=== PATIENT | female | born 1945 ===

== ENCOUNTER 2023-06-07 13:00 | Outpatient (AMB) | payer OTHER, SELFPAY ==
[2023-06-07 13:06] VITALS: BP 126/68; PULSE 52; O2SAT 98; BMI 32.2
--- NOTE | 2023-06-07 13:06 | A.OFFVIS_ITS ---
Intake Vital Signs 06/07/23 13:06 Height 5 ft 3 in Weight 182 lb BMI 32.2 BP 126/68 Blood Pressure Location Lt brachial Position Sitting Pulse 52 Pulse Source Pulse Oximeter Pulse Oximetry (%) 98 Oxygen Delivery Method Room Air Intake Visit Reasons: COPD Allergies Contrast Allergy (Uncoded 06/07/23 13:34) Unknown HPI HPI Comments History of Present Illness Details The patient is here for pulmonary evaluation. The patient is a 77 year woman with known history of significant asthma. She grew up in [place] and also lived in [place] for many years. Now for the last few years has been in the area. She has been complaining of worsening shortness of breath and chest tightness. Moderate severity. Difficult to do all her activities of daily living. She states that when she was in [place] she was started on some i njections and she does not know the name. I believe there are biologics. She reports doing them every month. She did feel significant improvement with the injections. Meantime she has been doing Trelegy 100. Which is partially helpful. Although states she still has shortness of breath. The patient did have allergy testing in the past when she was in [place]. She has not had any testing since then. As far as imaging studies she states that last month she was having some back pain and radiation down to the arm and she ended up going to [facility] ED and she was evaluated then and had an x-ray done. We do not have those results. The patient states that she was told that most likely having cervical spinal cord injury and they recommended having additional imaging studies as an outpatient. 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 She is not sure that had anything to the with worsening respiratory symptoms. The patient also describes substernal chest discomfort. Moderate in severity when walking. She was evaluated by Cardiology and per her report the plate and frame filter operator mention to her that is likely pulmonary because her cardiac tests have been normal. She does carry a significant cardiac history also to note that her daughter and that up having a cardiac transplant but the details are not available. [facility] Medical History (Updated 06/09/23 @ 22:33 by Russell Nicole MD) Asthma Chest pain Dyspnea Social History (Updated 06/07/23 @ 13:11 by Kiya Duff [facility]) Alcohol intake: never Patient Tobacco Use Status: Never used Tobacco Review of Systems Const Denies fever(s) Eyes Denies change in vision ENT Reports nasal congestion Card Denies chest pain and Reports dyspnea on exertion Resp Reports cough, Reports dyspnea on exertion and Reports wheezing GI Reports no additional complaints Musc Reports no additional complaints Skin/Breast Denies rash Neuro Reports no additional complaints Endo Denies flushing Raúl/Lymph Denies lymphadenopathy Aller/Immun Reports wheezing Physical Exam Vital Signs: Last Vital Signs Pulse 52 06/07/23 13:06 BP 126/68 06/07/23 13:06 Pulse Ox 98 06/07/23 13:06 Oxygen Delivery Method Room Air 06/07/23 13:06 BMI result Body Mass Index 32.2 Const General: comfortable HEENT Head: Yes normocephalic Neck Neck: Yes trachea midline and Yes supple Chest Chest palpation & inspection: normal inspection of the chest Resp Effort & Inspection: normal respiratory effort Auscultation: wheezes and diminished lung sounds Cardio Heart sounds: S1 normal heart sound present and S2 normal heart sound present GI Palpation (GI): Soft to palpation Skin General skin exam: no rashes or lesions noted Extrem General: Yes no clubbing, cyanosis or edema Office Procedures 6 Minute Walk Time:: 13:30 SPO2 % at rest: 96 Pulse at rest: 46 SPO2 % during excercise: 96 Pulse during excercise: 78 SPO2 % after excercise: 97 Pulse after excercise: 59 Distance in yards walked: 150 Pillo Score: 6 Supplemental Oxygen: NONE Performance Observations:: PT. WALKED ON LEVEL SURFACE FOR 6 (SOX) MINUTES. pT SPO2 REMAINED IN UPPER 90'S AT ALL TIMES. PT STATES HER WORK OF BREATHING WAS SLIGHTLY LABORED. [address]5670 - 6 Minute Walk Assessment & Plan Assessment & Plan (1) Asthma: Code(s): J45.909 - Unspecified asthma, uncomplicated Qualifiers: Asthma severity: severe Asthma persistence: persistent Asthma complication type: uncomplicated Qualified Code(s): J45.50 - Severe persistent asthma, uncomplicated (2) Dyspnea: Code(s): R06.00 - Dyspnea, unspecified Qualifiers: Dyspnea type: dyspnea on exertion Qualified Code(s): R06.09 - Other forms of dyspnea (3) Chest pain: Code(s): R07.9 - Chest pain, unspecified Qualifiers: Chest pain type: unspecified Qualified Code(s): R07.9 - Chest pain, unspecified Plan PFTs Bloodwork / Allergy testing increase Trelegy 200 DANIELA as needed continue singulair consider Biologic therapy F/U 6-8 weeks Orders: Orders Angiotensin Converting Enzyme 06/07/23 J45.909 - Unspecified asthma, uncomplicated, R06.00 - Dyspnea, unspecified, R07.9 - Chest pain, unspecified Basic Metabolic Panel 06/07/23 J45.909 - Unspecified asthma, uncomplicated, R06.00 - Dyspnea, unspecified, R07.9 - Chest pain, unspecified Rast Allergen 06/07/23 J45.909 - Unspecified asthma, uncomplicated, R06.00 - Dyspnea, unspecified, R07.9 - Chest pain, unspecified Complete Blood Count Auto Diff 06/07/23 J45.909 - Unspecified asthma, uncomplicated, R06.00 - Dyspnea, unspecified, R07.9 - Chest pain, unspecified Erythrocyte Sedimentation Rate 06/07/23 J45.909 - Unspecified asthma, uncomplicated, R06.00 - Dyspnea, unspecified, R07.9 - Chest pain, unspecified Immunoglobulin E 06/07/23 J45.909 - Unspecified asthma, uncomplicated, R06.00 - Dyspnea, unspecified, R07.9 - Chest pain, unspecified PFT pulmonary function test 06/07/23 J45.909 - Unspecified asthma, uncomplicated, R06.00 - Dyspnea, unspecified, R07.9 - Chest pain, unspecified AMB 6 minute walk 06/07/23 R06.00 - Dyspnea, unspecified Medications: New dfqdtquritp-ubbvibaiu-cgexqofh 200-62.5-25 mcg (Trelegy Ellipta) 1 inh inhalation DAILY 30 days 60 ea 12RF Coding Level of Care Code New Pt Level 4 (06039) Diagnoses Asthma J45.50 Asthma severity: severe Asthma persistence: persistent Asthma complication type: uncomplicated Dyspnea R06.09 Dyspnea type: dyspnea on exertion Chest pain R07.9 Chest pain type: unspecified CPT Codes Coding ([id number]) Time Spent (min) 38
[2023-06-07 13:55] VITALS: PULSE 46; O2SAT 96
== END 2023-06-07 14:08 | disposition home or self-care (01) ==
PROVIDERS: PCP Internal Medicine; Visit Provider Hospitalist
DX: J45.50 Severe persistent asthma, uncomplicated (principal)
CPT/HCPCS: 94618; 99204

== ENCOUNTER 2023-06-07 13:00 | Outpatient (REF) | payer OTHER, SELFPAY ==
[2023-06-07 14:23] LABS: MANUAL DIFF FLAG NO
[2023-06-07 15:56] LABS: Basophils Percent Auto 1.1 % (0-2); Eosinophils Absolute Auto 0.3 X10*3/uL (0.0-0.4); Hematocrit 34.3 % (37.0-47.0); Hemoglobin 10.7 g/dl (12.0-16.0); Imm Gran Abs Auto 0.01 X10*3/uL (0.00-0.03); Imm Gran Pct Auto 0.3 % (0.0-0.4); Lymphocytes Absolute Auto 1.2 X10*3/uL (1.2-4.9); Lymphocytes Percent Auto 32.2 % (20-40); Mean Corpuscular HGB Conc 31.2 g/dl (31.0-35.0); Mean Corpuscular Volume 86.4 fL (80.0-98.0); Mean Platelet Volume 10.8 fL (9.4-12.3); Monocytes Absolute Auto 0.4 X10*3/uL (0.1-1.2); Neutrophils Absolute Auto 1.7 x10*3/uL (2.0-8.3); Neutrophils Percent Auto 45.4 % (45-73); Platelet Count 198 X10*3/uL (160-400); Red Blood Count 3.97 X10*6/uL (4.20-5.50); Red Cell Distribution Width 14.1 % (11.0-16.0); White Blood Count 3.7 X10*3/uL (4.8-10.8)
[2023-06-07 16:40] LABS: Anion Gap 11 (12-20); Blood Urea Nitrogen 22 mg/dL (9-16); Calcium 9.3 mg/dL (8.4-10.2); Carbon Dioxide 28 mmol/L (22-29); Chloride 107 mmol/L (96-108); Erythrocyte Sedimentation Rate 13 MM/HR (0-20); Estimated Glomerular Filt Rate 54; Glucose Random 85 mg/dL (60-115); Potassium 3.5 mmol/L (3.3-5.1); Sodium 142 mmol/L (135-145)
[2023-06-12 18:18] LABS: Immunoglobulin E 385 kU/L (<OR=114)
[2023-06-12 20:49] LABS: Angiotensin Converting Enzyme 9.9 U/L (9-67)
== END 2023-06-07 13:01 | disposition home or self-care (01) ==
LOC: HO.LAB 13:00
PROVIDERS: PCP Internal Medicine; Visit Provider Hospitalist
DX: J45.909 Unspecified asthma, uncomplicated (principal); R06.00 Dyspnea, unspecified; R07.9 Chest pain, unspecified; Z91.09 Other allergy status, other than to drugs and biological substances
CPT/HCPCS: 36415; 80048; 82164; 82785; 85025; 85652; 86003; 94618; 99202

== ENCOUNTER 2023-07-24 13:00 | Outpatient (REF) | payer OTHER, SELFPAY ==
--- NOTE | 2023-07-24 13:54 | PFT_ITS ---
Forced vital capacity 73%, FEV1 63%. FEV1/FVC ratio is 65. ING67-84 50% and MVV 45%. Post bronchodilator therapy, there is significant improvement in all flow volumes. Total lung capacity 75%. Residual volume is 26%. Diffusion capacity 56%. CONCLUSION: There is mild degree of restrictive pulmonary disorder. Moderately severe obstructive airway disorder with good response to bronchodilator therapy. These findings are consistent with asthma/COPD overlap syndrome and also with restrictive lung disorder. Clinical correlation recommended. MD SHARRI Green/MODL / [id number]
== END 2023-07-24 13:01 | disposition home or self-care (01) ==
LOC: HO.RESP 13:00
PROVIDERS: PCP Physician Assistant; Visit Provider Hospitalist
DX: J45.909 Unspecified asthma, uncomplicated (principal); R06.00 Dyspnea, unspecified; R07.9 Chest pain, unspecified
CPT/HCPCS: 94010; 94727; 94729

== ENCOUNTER → 2023-07-24 13:54 | Outpatient (BNV) | payer OTHER, SELFPAY | PROVIDERS: PCP Physician Assistant; Visit Provider Internal Medicine | DX: J45.909 Unspecified asthma, uncomplicated (principal) | CPT/HCPCS: 94060; 94727; 94729 ==

== ENCOUNTER 2023-08-13 13:42 | Outpatient (AMB) | payer OTHER, SELFPAY ==
[2023-08-13 14:06] VITALS: PULSE 59; O2SAT 94; BMI 32.1
--- NOTE | 2023-08-13 14:06 | MHC.OFFVIS ---
Intake Vital Signs 08/13/23 14:06 Height 5 ft 3 in Weight 181 lb 7.047 oz BMI 32.1 Pulse 59 Pulse Source Pulse Oximeter Pulse Oximetry (%) 94 Oxygen Delivery Method Room Air Intake Visit Reasons: COPD Institutional Aide Required: No Allergies Contrast Allergy (Uncoded 08/13/23 14:07) Unknown HPI HPI Comments History of Present Illness Details The patient is a 77 year woman with known history of significant asthma. She grew up in [place] and also lived in [place] for many years. Now for the last few years has been in the area. She has been complaining of worsening shortness of breath and chest tightness. Moderate severity. Difficult to do all her activities of daily living. She states that when she was in [place] she was started on some injections and she does not know the name. I believe there are biologics. She reports doing them every month. She did feel significant improvement with the injections. Meantime she has been doing Trelegy 100. Which is partially helpful. Although states she still has shortness of breath. The patient did have allergy testing in the past when she was in [place]. She has not had any testing since then. As far as imaging studies she states that last month she was having some back pain and radiation down to the arm and she ended up going to [facility] ED and she was evaluated then and had an x-ray done. We do not have those results. The patient states that she was told that most likely having cervical spinal cord injury and they recommended having additional imaging studies as an outpatient. 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 She is not sure that had anything to the with worsening respiratory symptoms. The patient also describes substernal chest discomfort. Moderate in severity when walking. She was evaluated by Cardiology and per her report the director industrial museum mention to her that is likely pulmonary because her cardiac tests have been normal. She does carry a significant cardiac history also to note that her daughter and that up having a cardiac transplant but the details are not available. 08/13/2023 the patient is here for a pulmonary follow-up visit. The patient still complains of chest tightness and cough. Moderate severity. The increasing the Trelegy inhaler did help some but only partially. She still requires her rescue inhaler on a daily basis. Also worsened now during the fall season. We did review her allergies. The patient does have significant allergies. She does have elevations in her IgE and also elevations in her eosinophil count. She had been on biologic therapies in the past. At this point I do believe she needs to go back on them specially with the ongoing rhinosinusitis and significant asthma symptoms. We did review her PFTs demonstrating reversible obstruction with significant small airways disease. [facility] Medical History (Updated 08/13/23 @ 21:37 by Russell Nicole MD) Chronic sinusitis Chest pain Dyspnea Asthma Social History (Updated 06/07/23 @ 13:11 by Kiya Duff CMA) Alcohol intake: never Patient Tobacco Use Status: Never used Tobacco Review of Systems Const Denies fever(s) and Reports headache(s) Eyes Denies change in vision ENT Reports headache(s) and Reports nasal congestion Card Denies chest pain and Reports dyspnea on exertion Resp Reports cough, Reports dyspnea on exertion and Reports wheezing GI Reports no additional complaints Musc Reports no additional complaints Skin/Breast Denies rash Neuro Reports no additional complaints and Reports headache(s) Endo Denies flushing Raúl/Lymph Denies lymphadenopathy Aller/Immun Reports wheezing Physical Exam Vital Signs: Last Vital Signs Pulse 59 08/13/23 14:06 Pulse Ox 94 08/13/23 14:06 Oxygen Delivery Method Room Air 08/13/23 14:06 BMI result Body Mass Index 32.1 Const General: comfortable HEENT Head: Yes normocephalic Neck Neck: Yes trachea midline and Yes supple Chest Chest palpation & inspection: normal inspection of the chest Resp Effort & Inspection: normal respiratory effort Auscultation: wheezes and diminished lung sounds Cardio Heart sounds: S1 normal heart sound present and S2 normal heart sound present GI Palpation (GI): Soft to palpation Skin General skin exam: no rashes or lesions noted Extrem General: Yes no clubbing, cyanosis or edema Assessment & Plan Assessment & Plan (1) Asthma: Code(s): J45.909 - Unspecified asthma, uncomplicated Qualifiers: Asthma complication type: uncomplicated Asthma persistence: persistent Asthma severity: severe Qualified Code(s): J45.50 - Severe persistent asthma, uncomplicated (2) Dyspnea: Code(s): R06.00 - Dyspnea, unspecified Qualifiers: Dyspnea type: dyspnea on exertion Qualified Code(s): R06.09 - Other forms of dyspnea (3) Chest pain: Code(s): R07.9 - Chest pain, unspecified Qualifiers: Chest pain type: unspecified Qualified Code(s): R07.9 - Chest pain, unspecified (4) Chronic sinusitis: Code(s): J32.9 - Chronic sinusitis, unspecified Qualifiers: Sinusitis location: pansinusitis Qualified Code(s): J32.4 - Chronic pansinusitis Plan start Dupixent 300mg continue Trelegy 200 DANIELA as needed continue singulair F/U 3-4months Coding Level of Care Code Est Pt Level 4 (95898) Diagnoses Severe persistent asthma without complication J45.50 Asthma complication type: uncomplicated Asthma persistence: persistent Asthma severity: severe Dyspnea on exertion R06.09 Dyspnea type: dyspnea on exertion Chest pain, unspecified type R07.9 Chest pain type: unspecified Chronic pansinusitis J32.4 Sinusitis location: pansinusitis Time Spent (min) 17
== END 2023-08-13 14:29 | disposition home or self-care (01) ==
PROVIDERS: PCP Physician Assistant; Visit Provider Hospitalist
DX: J45.50 Severe persistent asthma, uncomplicated (principal); R06.09 Other forms of dyspnea; R07.9 Chest pain, unspecified; J32.4 Chronic pansinusitis
CPT/HCPCS: 99214

== ENCOUNTER → 2023-08-13 13:42 | Outpatient (BNVA) | payer OTHER, SELFPAY | PROVIDERS: PCP Physician Assistant; Visit Provider Hospitalist | DX: J45.50 Severe persistent asthma, uncomplicated (principal); R06.09 Other forms of dyspnea; R07.9 Chest pain, unspecified; J32.4 Chronic pansinusitis | CPT/HCPCS: 99212 ==

== ENCOUNTER 2023-08-31 09:51 | Outpatient (AMB) | payer OTHER, SELFPAY ==
--- NOTE | 2023-08-31 09:57 | MHC.OFFVIS ---
Intake Vital Signs 08/31/23 09:58 BP 138/68 Blood Pressure Location Rt brachial Position Sitting Pulse 58 Pulse Source Pulse Oximeter Pulse Oximetry (%) 98 Oxygen Delivery Method Room Air Intake Visit Reasons: Dupixent Teaching Allergies Contrast Allergy (Uncoded 08/31/23 10:19) Unknown Medication List - Last Reconciled 08/31/23 by Bethany Campos LPN amlodipine 5 mg PO DAILY wxrffueaim-zlkycffib-chtppqjir 10-160-12.5 mg 1 tab PO DAILY aspirin 81 mg PO DAILY atorvastatin 40 mg PO DAILY carvedilol 3.125 mg PO Q12H dupilumab (Dupixent) subcutaneously every 2 weeks; loading dose 600mg, then 300mg every 2 weeks 4 weeks utuoroegtom-vsxzaslxo-askhaqfs 200-62.5-25 mcg (Trelegy Ellipta) 1 inh inhalation DAILY 30 days furosemide 40 mg PO BID gabapentin 300 mg PO BEDTIME isosorbide mononitrate ER 60 mg PO QAM montelukast 10 mg PO DAILY omeprazole 20 mg PO DAILY oxcarbazepine 150 mg PO BID valsartan-hydrochlorothiazide 320-12.5 mg 1 tab PO DAILY HPI Dupixent Teaching HPI Details Radha is here for a Dupixent teach with her BOILER TECHNICIAN Sepideh. Radha and Sepideh were educated on hand washing, injection preparation, administration, and disposal.? Radha and Sepideh were both able to return demonstrate proper technique for hand washing, injection preparation, administration and disposal of needle and states they have no questions at this time. Medication Dupixent 300mg/2mL pre-filled pen (patient?s own meds) Loading dose of 600mg given by the patient in 2 SQ injections; injection #1 R upper arm ;? injection #2 L upper arm? Lot# [id number] expires 06/18/2025. Patient aware her next injection is in 15 days. Nurse visit only.? [facility] Medical History (Updated 08/13/23 @ 21:37 by Russell Nicole MD) Chronic sinusitis Chest pain Dyspnea Asthma Social History (Updated 06/07/23 @ 13:11 by Kiya Duff CMA) Alcohol intake: never Patient Tobacco Use Status: Never used Tobacco Assessment & Plan Assessment & Plan (1) Asthma: Code(s): J45.909 - Unspecified asthma, uncomplicated Qualifiers: Asthma severity: severe Asthma persistence: persistent Asthma complication type: uncomplicated Qualified Code(s): J45.50 - Severe persistent asthma, uncomplicated Coding Level of Care Code Established Pt Est Pt Level 1 (85103) Patient Type Established Diagnoses Severe persistent asthma without complication J45.50 Asthma severity: severe Asthma persistence: persistent Asthma complication type: uncomplicated Comment NURSE VISIT ONLY
[2023-08-31 09:58] VITALS: BP 138/68; PULSE 58; O2SAT 98
== END 2023-08-31 10:28 | disposition home or self-care (01) ==
PROVIDERS: PCP Physician Assistant; Visit Provider Hospitalist
DX: J45.50 Severe persistent asthma, uncomplicated (principal)

== ENCOUNTER → 2023-08-31 09:51 | Outpatient (BNVA) | payer OTHER, SELFPAY | PROVIDERS: PCP Physician Assistant; Visit Provider Hospitalist | DX: Z71.89 Other specified counseling (principal); J45.50 Severe persistent asthma, uncomplicated | CPT/HCPCS: 99211 ==

== ENCOUNTER 2023-12-17 13:39 | Outpatient (AMB) | payer OTHER, SELFPAY ==
[2023-12-17 13:54] VITALS: PULSE 60; O2SAT 97; BMI 32.1
--- NOTE | 2023-12-17 13:54 | A.OFFVIS_ITS ---
Intake Vital Signs 12/17/23 13:54 Height 5 ft 3 in Weight 181 lb 7.047 oz BMI 32.1 Pulse 60 Pulse Source Pulse Oximeter Pulse Oximetry (%) 97 Oxygen Delivery Method Room Air Intake Visit Reasons: COPD Angle Dozer Operator Required: No Allergies Contrast Allergy (Uncoded 12/17/23 13:56) Unknown HPI HPI Comments History of Present Illness Details The patient is a 78 year woman with known history of significant asthma. She grew up in [place] and also lived in [place] for many years. Now for the last few years has been in the area. She has been complaining of worsening shortness of breath and chest tightness. Moderate severity. Difficult to do all her activities of daily living. She states that when she was in [place] she was started on some injections and she does not know the name. I believe there are biologics. She reports doing them every month. She did feel significant improvement with the injections. Meantime she has been doing Trelegy 100. Which is partially helpful. Although states she still has shortness of breath. The patient did have allergy testing in the past when she was in [place]. She has not had any testing since then. As far as imaging studies she states that last month she was having some back pain and radiation down to the arm and she ended up going to [facility] ED and she was evaluated then and had an x-ray done. We do not have those results. The patient states that she was told that most likely having cervical spinal cord injury and they recommended having additional imaging studies as an outpatient. 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 She is not sure that had anything to the with worsening respiratory symptoms. The patient also describes substernal chest discomfort. Moderate in severity when walking. She was evaluated by Cardiology and per her report the property and supply officer mention to her that is likely pulmonary because her cardiac tests have been normal. She does carry a significant cardiac history also to note that her daughter and that up having a cardiac transplant but the details are not available. 08/13/2023 the patient is here for a pulmonary follow-up visit. The patient still complains of chest tightness and cough. Moderate severity. The increasing the Trelegy inhaler did help some but only partially. She still requires her rescue inhaler on a daily basis. Also worsened now during the fall season. We did review her allergies. The patient does have significant allergies. She does have elevations in her IgE and also elevations in her eosinophil count. She had been on biologic therapies in the past. At this point I do believe she needs to go back on them specially with the ongoing rhinosinusitis and significant asthma symptoms. We did review her PFTs demonstrating reversible obstruction with significant small airways disease. 12/17/2023 the patient is here for a pulmonary follow-up visit. The patient is complaining of worsening chest tightness and wheezing. She has also been coughing more. Moderate severity. She is using the Trelegy with partial response. She feels like a nebulizer be helpful but hers is broken down in a longer working effectively. Will request a replacement nebulizer for her. In the meantime the patient does have wheezing on examination. Will go ahead treat her for an asthma exacerbation. She did start the Dupixent injections. However, she relies on her RABBIT FANCIER to give her the injections and she was due about a week ago and she is yet to use it because she does not have any help. She did bring it in today we did help her with the injection today. She will have every 2 weeks as prescribed she understands this will decrease the need for prednisone. In the meantime she will need additional prednisone this time. I will give her low-dose since it bothersome to take prednisone. [facility] Medical History (Updated 12/17/23 @ 20:24 by Russell Nicole MD) Chronic sinusitis Chest pain Dyspnea Asthma Social History (Updated 06/07/23 @ 13:11 by Kiya Duff CMA) Alcohol intake: never Patient Tobacco Use Status: Never used Tobacco Review of Systems Const Denies fever(s) and Reports headache(s) Eyes Denies change in vision ENT Reports headache(s) and Reports nasal congestion Card Denies chest pain and Reports dyspnea on exertion Resp Reports cough, Reports dyspnea on exertion and Reports wheezing GI Reports no additional complaints Musc Reports no additional complaints Skin/Breast Denies rash Neuro Reports no additional complaints and Reports headache(s) Endo Denies flushing Raúl/Lymph Denies lymphadenopathy Aller/Immun Reports wheezing Physical Exam Vital Signs: Last Vital Signs Pulse 60 12/17/23 13:54 Pulse Ox 97 12/17/23 13:54 Oxygen Delivery Method Room Air 12/17/23 13:54 BMI result Body Mass Index 32.1 Const General: comfortable HEENT Head: Yes normocephalic Neck Neck: Yes trachea midline and Yes supple Chest Chest palpation & inspection: normal inspection of the chest Resp Effort & Inspection: normal respiratory effort Auscultation: wheezes and diminished lung sounds Cardio Heart sounds: S1 normal heart sound present and S2 normal heart sound present GI Palpation (GI): Soft to palpation Skin General skin exam: no rashes or lesions noted Extrem General: Yes no clubbing, cyanosis or edema Assessment & Plan Assessment & Plan (1) Asthma: Code(s): J45.909 - Unspecified asthma, uncomplicated Qualifiers: Asthma complication type: with acute exacerbation Asthma persistence: persistent Asthma severity: severe Qualified Code(s): J45.51 - Severe persistent asthma with (acute) exacerbation (2) Dyspnea: Code(s): R06.00 - Dyspnea, unspecified Qualifiers: Dyspnea type: dyspnea on exertion Qualified Code(s): R06.09 - Other forms of dyspnea Plan continue Dupixent 300mg continue Trelegy 200 DANIELA as needed start Prednisone taper start Zpack DANIELA as neeeded continue singulair Needs nebulizer F/U 3-4months Medications: New azithromycin 500 mg PO DAILY 5 days 5 tabs 0RF prednisone PO daily; Take 3 tabs daily for 3 days, then 2 tabs daily x 3 days, then 1 tab daily x 3 days. 9 days 18 tabs 0RF albuterol sulfate 2.5 mg (3 mL) inhalation Q6H 30 days PRN 180 mL 11RF shortness of breath or wheezing Coding Level of Care Code Est Pt Level 4 (70071) Diagnoses Severe persistent asthma with acute exacerbation J45.51 Asthma complication type: with acute exacerbation Asthma persistence: persistent Asthma severity: severe Dyspnea on exertion R06.09 Dyspnea type: dyspnea on exertion Time Spent (min) 17
== END 2023-12-17 14:38 | disposition home or self-care (01) ==
PROVIDERS: PCP Physician Assistant; Visit Provider Hospitalist
DX: J45.51 Severe persistent asthma with (acute) exacerbation (principal); R06.09 Other forms of dyspnea
CPT/HCPCS: 99214

== ENCOUNTER → 2023-12-17 13:39 | Outpatient (BNVA) | payer OTHER, SELFPAY | PROVIDERS: PCP Physician Assistant; Visit Provider Hospitalist | DX: J45.51 Severe persistent asthma with (acute) exacerbation (principal); R06.09 Other forms of dyspnea | CPT/HCPCS: 99212 ==

== ENCOUNTER 2024-06-25 09:47 | Outpatient (REF) | payer OTHER, SELFPAY ==
--- NOTE | ~2024-06-25 | XR_ITS ---
EXAMINATION: XR CHEST 2 VIEWS CLINICAL INFORMATION: Central chest pain. COMPARISON: None. TECHNIQUE: Frontal and lateral views of the chest were obtained. FINDINGS: The heart, great vessels, pulmonary vasculature and mediastinum are normal. There is absence of calcification and tortuosity of the thoracic aorta. The lungs show no focal infiltrate, effusion or pneumothorax. There is no acute osseous abnormality. There is multi-level thoracic spondylosis. XR/XR chest 2V IMPRESSION: No active cardiopulmonary disease. Electronically signed by: Manny Garcia MD 07/23/2024 08:54 PM EDT
--- NOTE | 2024-06-25 10:23 | ECG_ITS ---
Test Reason : copd Blood Pressure : / mmHG Vent. Rate : 052 BPM Atrial Rate : 052 BPM P-R Int : 158 ms QRS Dur : 098 ms QT Int : 414 ms P-R-T Axes : 009 -18 016 degrees QTc Int : 385 ms Sinus bradycardia Nonspecific ST and T wave abnormality Abnormal ECG No previous ECGs available Referred By: Russell Nicole Electronically Signed By:SCOTT COLLINS MD
[2024-06-25 10:29] LABS: MANUAL DIFF FLAG NO
[2024-06-25 11:45] LABS: Basophils Percent Auto 0.6 % (0-2); Eosinophils Absolute Auto 0.1 X10*3/uL (0.0-0.4); Eosinophils Percent Auto 4.5 % (0-4); Hematocrit 35.5 % (37.0-47.0); Hemoglobin 11.4 g/dl (12.0-16.0); Imm Gran Abs Auto 0.02 X10*3/uL (0.00-0.03); Imm Gran Pct Auto 0.6 % (0.0-0.4); Lymphocytes Absolute Auto 0.9 X10*3/uL (1.2-4.9); Lymphocytes Percent Auto 28.1 % (20-40); Mean Corpuscular HGB Conc 32.1 g/dl (31.0-35.0); Mean Corpuscular Hemoglobin 27.5 pg (27.0-33.0); Mean Corpuscular Volume 85.5 fL (80.0-98.0); Mean Platelet Volume 10.5 fL (9.4-12.3); Monocytes Absolute Auto 0.6 X10*3/uL (0.1-1.2); Monocytes Percent Auto 18.8 % (2-11); Neutrophils Absolute Auto 1.5 x10*3/uL (2.0-8.3); Neutrophils Percent Auto 47.4 % (45-73); Platelet Count 180 X10*3/uL (160-400); Red Blood Count 4.15 X10*6/uL (4.20-5.50); White Blood Count 3.1 X10*3/uL (4.8-10.8)
[2024-06-25 12:02] LABS: B Type Natriuretic Peptide 29 pg/mL (<100)
[2024-06-25 12:20] LABS: Anion Gap 11 (12-20); Blood Urea Nitrogen 9 mg/dL (9-16); Calcium 9.7 mg/dL (8.4-10.2); Carbon Dioxide 28 mmol/L (22-29); Chloride 105 mmol/L (96-108); Estimated Glomerular Filt Rate 59; Glucose Random 106 mg/dL (60-115); Potassium 3.1 mmol/L (3.3-5.1); Sodium 141 mmol/L (135-145)
[2024-06-25 12:28] LABS: Erythrocyte Sedimentation Rate 17 MM/HR (0-20)
[2024-06-26 14:13] LABS: Immunoglobulin E 85 kU/L (<OR=114)
== END 2024-06-25 09:48 | disposition home or self-care (01) ==
LOC: HO.LAB 09:47
PROVIDERS: PCP Physician Assistant; Visit Provider Hospitalist
DX: R07.9 Chest pain, unspecified (principal); R06.09 Other forms of dyspnea; J44.9 Chronic obstructive pulmonary disease, unspecified; J45.51 Severe persistent asthma with (acute) exacerbation
CPT/HCPCS: 36415; 71046; 80048; 82785; 83880; 84484; 85025; 85652; 93005; 99212

== ENCOUNTER 2024-06-25 09:47 | Outpatient (AMB) | payer OTHER, SELFPAY ==
[2024-06-25 09:51] VITALS: PULSE 62; O2SAT 99; BMI 31.4
--- NOTE | 2024-06-25 09:51 | A.OFFVIS_ITS ---
Vital Signs 06/25/24 09:51 Height 5 ft 3 in Weight 177 lb 7.554 oz BMI 31.4 Pulse 62 Pulse Source Pulse Oximeter Pulse Oximetry (%) 99 Oxygen Delivery Method Room Air Intake Visit Reasons: COPD Plumbing Engineer Required: No Allergies Contrast Allergy (Uncoded 06/25/24 09:53) Unknown HPI Comments Details: The patient is a 78 year woman with known history of significant asthma. She g rew up in [place] and also lived in [place] for many years. Now for the last few years has been in the area. She has been complaining of worsening shortness of breath and chest tightness. Moderate severity. Difficult to do all her activities of daily living. She states that when she was in [place] she was started on some injections and she does not know the name. I believe there are biologics. She reports doing them every month. She did feel significant improvement with the injections. Meantime she has been doing Trelegy 100. Which is partially helpful. Although states she still has shortness of breath. The patient did have allergy testing in the past when she was in [place]. She has not had any testing since then. As far as imaging studies she states that last month she was having some back pain and radiation down to the arm and she ended up going to [facility] ED and she was evaluated then and had an x-ray done. We do not have those results. The patient states that she was told that most likely having cervical spinal cord injury and they recommended having additional imaging studies as an outpatient. 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 She is not sure that had anything to the with worsening respiratory symptoms. The patient also describes substernal chest discomfort. Moderate in severity when walking. She was evaluated by Cardiology and per her report the office technician mention to her that is likely pulmonary because her cardiac tests have been normal. She does carry a significant cardiac history also to note that her daughter and that up having a cardiac transplant but the details are not available. 08/13/2023 the patient is here for a pulmonary follow-up visit. The patient still complains of chest tightness and cough. Moderate severity. The increasing the Trelegy inhaler did help some but only partially. She still requires her rescue inhaler on a daily basis. Also worsened now during the fall season. We did review her allergies. The patient does have significant allergies. She does have elevations in her IgE and also elevations in her eosinophil count. She had been on biologic therapies in the past. At this po int I do believe she needs to go back on them specially with the ongoing rhinosinusitis and significant asthma symptoms. We did review her PFTs demonstrating reversible obstruction with significant small airways disease. 12/17/2023 the patient is here for a pulmonary follow-up visit. The patient is complaining of worsening chest tightness and wheezing. She has also been coughing more. Moderate severity. She is using the Trelegy with partial response. She feels like a nebulizer be helpful but hers is broken down in a longer working effectively. Will request a replacement nebulizer for her. In the meantime the patient does have wheezing on examination. Will go ahead treat her for an asthma exacerbation. She did start the Dupixent injections. However, she relies on her SPECIAL PROJECTS MANAGER to give her the injections and she was due about a week ago and she is yet to use it because she does not have any help. She did bring it in today we did help her with the injection today. She will have every 2 weeks as prescribed she understands this will decrease the need for prednisone. In the meantime she will need additional prednisone this time. I will give her low-dose since it bothersome to take prednisone. 06/25/2024 the patient is here for a pulmonary follow-up visit. She complains of worsening dyspnea on exertion chest chest pressure. She is concerned about the heart. The patient did have a cardiac catheterization apparently back in 2021 at [facility]. We did review. She had some mild CAD not enough for PCI. She has also been noticing some lower extremity edema. She has been on the Dupixent injections. She is not sure of the working. She does feel that she is having a rash at the area of the site with her being injected. Based on her allergic and adverse reaction will go ahead and switch over to Tezspire. I did give her information about iit and her nurse did send the paperwork in order to submitted to the insurance company. She does have some wheezing on examination. Some chest tightness. She is going to continue with the respiratory medications that have been partially helpful. I do believe that part her symptoms are due to her persistent bronchospasms and uncontrolled asthma. Although will have her get a chest x-ray in addition to blood work. The patient should also get an EKG at some point. [facility] Medical History (Updated 06/25/24 @ 22:53 by Russell Nicole MD) Chronic sinusitis Chest pain Dyspnea Asthma Social History (Updated 06/07/23 @ 13:11 by Kiya Duff CMA) Alcohol intake: never Patient Tobacco Use Status: Never used Tobacco Review of Systems Const Denies fever(s) and Reports headache(s) Eyes Denies change in vision ENT Reports headache(s) and Reports nasal congestion Card Denies chest pain and Reports dyspnea on exertion Resp Reports cough, Reports dyspnea on exertion and Reports wheezing GI Reports no additional complaints Musc Reports no additional complaints Skin/Breast Denies rash Neuro Reports no additional complaints and Reports headache(s) Endo Denies flushing Raúl/Lymph Denies lymphadenopathy Aller/Immun Reports wheezing Physical Exam Vital Signs: Last Vital Signs Pulse 62 06/25/24 09:51 Pulse Ox 99 06/25/24 09:51 Oxygen Delivery Method Room Air 06/25/24 09:51 BMI result Body Mass Index 31.4 Const General: comfortable HEENT Head: Yes normocephalic Neck Neck: Yes trachea midline and Yes supple Chest Chest palpation & inspection: normal inspection of the chest Resp Effort & Inspection: normal respiratory effort Auscultation: wheezes and diminished lung sounds Cardio Heart sounds: S1 normal heart sound present and S2 normal heart sound present GI Palpation (GI): Soft to palpation Skin General skin exam: no rashes or lesions noted Extrem General: Yes no clubbing, cyanosis or edema Assessment & Plan Assessment & Plan (1) Asthma: Code(s): J45.909 - Unspecified asthma, uncomplicated Category: Medical Qualifiers: Asthma complication type: uncomplicated Asthma persistence: persistent Asthma severity: severe Qualified Code(s): J45.50 - Severe persistent asthma, uncomplicated (2) Dyspnea: Code(s): R06.00 - Dyspnea, unspecified Category: Medical Qualifiers: Dyspnea type: dyspnea on exertion Qualified Code(s): R06.09 - Other forms of dyspnea (3) Chest pain: Code(s): R07.9 - Chest pain, unspecified Category: Medical Qualifiers: Chest pain type: unspecified Qualified Code(s): R07.9 - Chest pain, unspecified Plan stop Dupixent 300mg start Tezspire continue Trelegy 200 DANIELA as needed DANIELA as neeeded continue singulair nebulizer CXR bloodwork EKG F/U with cardiology F/U 4-6 months Orders: Orders B Type Natriuretic Peptide Today J45.51 - Severe persistent asthma with (acute) exacerbation, R06.09 - Other forms of dyspnea, R07.9 - Chest pain, unspecified Complete Blood Count Auto Diff Today J45.51 - Severe persistent asthma with (acute) exacerbation, R06.09 - Other forms of dyspnea, R07.9 - Chest pain, unspecified Basic Metabolic Panel Today J45.51 - Severe persistent asthma with (acute) exacerbation, R06.09 - Other forms of dyspnea, R07.9 - Chest pain, unspecified Immunoglobulin E Today J45.51 - Severe persistent asthma with (acute) exacerbation, R06.09 - Other forms of dyspnea, R07.9 - Chest pain, unspecified ECG 12 lead EKG Today J44.9 - Chronic obstructive pulmonary disease, unspecified XR chest 2V Today J45.51 - Severe persistent asthma with (acute) exacerbation, R06.09 - Other forms of dyspnea, R07.9 - Chest pain, unspecified Troponin-I High Sensitivity Today J45.51 - Severe persistent asthma with (acute) exacerbation, R06.09 - Other forms of dyspnea, R07.9 - Chest pain, unspecified Erythrocyte Sedimentation Rate Today J45.51 - Severe persistent asthma with (acute) exacerbation, R06.09 - Other forms of dyspnea, R07.9 - Chest pain, unspecified Coding Level of Care Code Est Pt Level 4 (55457) Complex EM visit Add On G2211 Diagnoses Severe persistent asthma without complication J45.50 Asthma complication type: uncomplicated Asthma persistence: persistent Asthma severity: severe Dyspnea on exertion R06.09 Dyspnea type: dyspnea on exertion Chest pain, unspecified type R07.9 Chest pain type: unspecified Time Spent (min) 17
== END 2024-06-25 10:11 | disposition home or self-care (01) ==
PROVIDERS: PCP Physician Assistant; Visit Provider Hospitalist
DX: J45.50 Severe persistent asthma, uncomplicated (principal); R06.09 Other forms of dyspnea; R07.9 Chest pain, unspecified
CPT/HCPCS: 99214; G2211

== ENCOUNTER → 2024-06-25 10:23 | Outpatient (BNV) | payer OTHER, SELFPAY | PROVIDERS: PCP Physician Assistant; Visit Provider Internal Medicine Cardiovascular Disease | DX: R00.1 Bradycardia, unspecified (principal); R94.31 Abnormal electrocardiogram [ECG] [EKG]; J44.9 Chronic obstructive pulmonary disease, unspecified | CPT/HCPCS: 93010 ==

== ENCOUNTER 2024-09-29 09:57 | Outpatient (AMB) | payer OTHER, SELFPAY ==
[2024-09-29 10:07] VITALS: BP 116/68; PULSE 68; O2SAT 99; BMI 31.2
--- NOTE | 2024-09-29 10:07 | A.OFFVIS_ITS ---
Vital Signs 09/29/24 10:07 Height 5 ft 3 in Weight 176 lb 5.917 oz BMI 31.2 BP 116/68 Blood Pressure Location Lt brachial Position Sitting Pulse 68 Pulse Source Pulse Oximeter Pulse Oximetry (%) 99 Oxygen Delivery Method Room Air Intake Visit Reasons: COPD Cis Coordinator Required: No Firmware Software Verification Engineer: Firmware Software Verification Engineer offered & declined Accompanied by: Self / Same As Patient Allergies Contrast Allergy (Uncoded 09/29/24 10:15) Unknown Medication List - Last Reconciled 09/29/24 by Liane Moscoso LPN albuterol sulfate 2.5 mg (3 mL) inhalation Q6H PRN 30 days amlodipine 5 mg PO DAILY pdxoilrzbg-qvvhwzmkg-awbxnwcnz 10-160-12.5 mg 1 tab PO DAILY aspirin 81 mg PO DAILY atorvastatin 40 mg PO DAILY azithromycin 500 mg PO DAILY 5 days carvedilol 3.125 mg PO Q12H dupilumab (Dupixent) 300 mg (2 mL) subcut Q2W 4 weeks nvokkaygzyr-sjrftcdwl-ojpjxkvj 200-62.5-25 mcg (Trelegy Ellipta) 1 inh inhalation DAILY 30 days furosemide 40 mg PO BID gabapentin 300 mg PO BEDTIME isosorbide mononitrate ER 60 mg PO QAM montelukast 10 mg PO DAILY omeprazole 20 mg PO DAILY oxcarbazepine 150 mg PO BID prednisone PO daily; Take 3 tabs daily for 3 days, then 2 tabs daily x 3 days, then 1 tab daily x 3 days. 9 days valsartan-hydrochlorothiazide 320-12.5 mg 1 tab PO DAILY HPI Comments Details: The patient is a 79 year woman with known history of significant asthma. She grew up in [place] and also lived in [place] for many years. Now for the last few years has been in the area. She has been complaining of worsening shortness of breath and chest tightness. Moderate severity. Difficult to do all her acti vities of daily living. She states that when she was in [place] she was started on some injections and she does not know the name. I believe there are biologics. She reports doing them every month. She did feel significant improvement with the injections. Meantime she has been doing Trelegy 100. Which is partially helpful. Although states she still has shortness of breath. The patient did have allergy testing in the past when she was in [place]. She has not had any testing since then. As far as imaging studies she states that last month she was having some back pain and radiation down to the arm and she ended up going to [facility] ED and she was evaluated then and had an x-ray done. We do not have those results. The patient states that she was told that most likely having cervical spinal cord injury and they recommended having additional imaging studies as an outpatient. 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 She is not sure that had anything to the with worsening respiratory symptoms. The patient also describes substernal chest discomfort. Moderate in severity when walking. She was evaluated by Cardiology and per her report the electronic industrial controls mechanic mention to her that is likely pulmonary because her cardiac tests have been normal. She does carry a significant cardiac history also to note that her daughter and that up having a cardiac transplant but the details are not available. 08/13/2023 the patient is here for a pulmonary follow-up visit. The patient still complains of chest tightness and cough. Moderate severity. The increasing the Trelegy inhaler did help some but only partially. She still requires her rescue inhaler on a daily basis. Also worsened now during the fall season. We did review her allergies. The patient does have significant allergies. She does have elevations in her IgE and also elevations in her eosinophil count. She had been on biologic therapies in the past. At this point I do believe she needs to go back on them specially with the ongoing rhinosinusitis and significant asthma symptoms. We did review her PFTs demonstrating reversible obstruction with significant small airways disease. 12/17/2023 the patient is here for a pulmonary follow-up visit. The patient is complaining of worsening chest tightness and wheezing. She has also been coughing more. Moderate severity. She is using the Trelegy with partial response. She feels like a nebulizer be helpful but hers is broken down in a longer working effectively. Will request a replacement nebulizer for her. In the meantime the patient does have wheezing on examination. Will go ahead treat her for an asthma exacerbation. She did start the Dupixent injections. However, she relies on her ORAL HEALTH THERAPIST to give her the injections and she was due about a week ago and she is yet to use it because she does not have any help. She did bring it in today we did help her with the injection today. She will have every 2 weeks as prescribed she understands this will decrease the need for prednisone. In the meantime she will need additional prednisone this time. I will give her low-dose since it bothersome to take prednisone. 06/25/2024 the patient is here for a pulmonary follow-up visit. She complains of worsening dyspnea on exertion chest chest pressure. She is concerned about the heart. The patient did have a cardiac catheterization apparently back in 2021 at [facility]. We did review. She had some mild CAD not enough for PCI. She has also been noticing some lower extremity edema. She has been on the Dupixent injections. She is not sure of the working. She does feel that she is having a rash at the area of the site with her being injected. Based on her allergic and adverse reaction will go ahead and switch over to Tezspire. I did give her information about iit and her nurse did send the paperwork in order to submitted to the insurance company. She does have some wheezing on examination. Some chest tightness. She is going to continue with the respiratory medications that have been partially helpful. I do believe that part her symptoms are due to her persistent bronchospasms and uncontrolled asthma. Although will have her get a chest x-ray in addition to blood work. The patient should also get an EKG at some point. 09/29/2024 the patient is here for a pulmonary follow-up visit. The patient hope diehl has been doing well. She continues with respiratory therapy as prescribed. The patient has not been on Tezspire. Right now were holding it. She is going to moving to [place] in therefore she may not be able to start at this time. Once she moves to [place] she can reassess to see if she needs a biologic therapy. And now she is actually doing okay with the Trelegy inhaler and other respiratory medications. She did have a chest x-ray back in 07/08/2024 demonstrating no acute disease which is reassuring. She will be relocating to [place] so I will make sure to send all the refills for her to have enough medication until she is situated over there. When she is there will give her information in order for the office to request for our records in order for her to continue her care there. If she has any issues prior to that she will call for an assessment. [facility] Medical History (Updated 09/29/24 @ 10:28 by Russell Nicole MD) Asthma-COPD overlap syndrome Chronic sinusitis Chest pain Dyspnea Asthma Social History (Updated 09/29/24 @ 10:18 by Liane Moscoso LPN) Alcohol intake: never Patient Tobacco Use Status: Never used Tobacco Review of Systems Const Denies fever(s) Eyes Denies change in vision ENT Reports nasal congestion Card Denies chest pain and Reports dyspnea on exertion Resp Reports cough, Reports dyspnea on exertion and Reports wheezing GI Reports no additional complaints Musc Reports no additional complaints Skin/Breast Denies rash Neuro Reports no additional complaints Endo Denies flushing Raúl/Lymph Denies lymphadenopathy Aller/Immun Reports wheezing Physical Exam Vital Signs: Last Vital Signs Pulse 68 09/29/24 10:07 BP 116/68 09/29/24 10:07 Pulse Ox 99 09/29/24 10:07 Oxygen Delivery Method Room Air 09/29/24 10:07 BMI result Body Mass Index 31.2 Const General: comfortable HEENT Head: Yes normocephalic Neck Neck: Yes trachea midline and Yes supple Chest Chest palpation & inspection: normal inspection of the chest Resp Effort & Inspection: normal respiratory effort Auscultation: no wheezes and diminished lung sounds Cardio Heart sounds: S1 normal heart sound present and S2 normal heart sound present GI Palpation (GI): Soft to palpation Skin General skin exam: no rashes or lesions noted Extrem General: Yes no clubbing, cyanosis or edema Results Reviewed Results Reviewed: Radha Mello??She/Her/Hers??79??F??1945 ? Allergy/Adv: [Contrast] (More??) Close Chest X-Ray (Signed) Manny Garcia - 06/25/24 Diagnostic Report, External 07/18/22 Launch?Image [address] [address] XRay Report Signed Patient: Radha Mello MR#: [id number] : 1945 Acct:[id number] Age/Sex: 78 / F ADM Date: 06/25/24 Loc: HO.LAB Attending Dr: Russell Nicole MD Ordering Physician: Russell Nicole MD Date of Service: 06/25/24 Procedure(s): XR chest 2V Accession Number(s): [id number] cc: Russell Nicole MD; Suha Masterson PA-C~ EXAMINATION: XR CHEST 2 VIEWS CLINICAL INFORMATION: Central chest pain. COMPARISON: None. TECHNIQUE: Frontal and lateral views of the chest were obtained. FINDINGS: The heart, great vessels, pulmonary vasculature and mediastinum are normal. There is absence of calcification and tortuosity of the thoracic aorta. The lungs show no focal infiltrate, effusion or pneumothorax. There is no acute osseous abnormality. There is multi-level thoracic spondylosis. XR/XR chest 2V IMPRESSION: No active cardiopulmonary disease. Electronically signed by: Manny Garcia MD 07/23/2024 08:54 PM EDT RP Assessment & Plan Assessment & Plan (1) Asthma: Code(s): J45.909 - Unspecified asthma, uncomplicated Category: Medical Qualifiers: Asthma complication type: uncomplicated Asthma persistence: persistent Asthma severity: severe Qualified Code(s): J45.50 - Severe persistent asthma, uncomplicated (2) Dyspnea: Code(s): R06.00 - Dyspnea, unspecified Category: Medical Qualifiers: Dyspnea type: dyspnea on exertion Qualified Code(s): R06.09 - Other forms of dyspnea Plan holding Tezspire untill she is re-evaluated in [place] continue Trelegy 200 DANIELA as needed DANIELA as neeeded continue singulair Anti histamine therapy nebulizer F/U with cardiology F/U PRN Medications: New loratadine (Claritin) 10 mg PO DAILY 30 tabs 11RF 30 days J30.2 - Other seasonal allergic rhinitis, J45.909 - Unspecified asthma, uncomplicated albuterol sulfate 90 mcg/actuation 2 inhalations inhalation Q6H PRN 18 grams 12RF shortness of breath or wheezing 30 days J44.9 - Chronic obstructive pulmonary disease, unspecified montelukast 10 mg PO DAILY 30 tabs 11RF lidocaine 5% (Lidoderm) leave on most painful area for up to 12 hrs 1 patch topical DAILY 30 ea 4RF 30 days 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 Changed From albuterol sulfate 2.5 mg (3 mL) inhalation Q6H 30 days PRN 180 mL 11RF shortness of breath or wheezing J44.89 - Other specified chronic obstructive pulmonary disease To albuterol sulfate 2.5 mg (3 mL) inhalation BID 180 mL 11RF 30 days J44.89 - Other specified chronic obstructive pulmonary disease Refilled ajehwgwfncr-ipxjvluyy-oxqdpixq 200-62.5-25 mcg (Trelegy Ellipta) 1 inh inhalation DAILY 60 ea 12RF 30 days Coding Level of Care Code Est Pt Level 4 (18371) Diagnoses Severe persistent asthma without complication J45.50 Asthma complication type: uncomplicated Asthma persistence: persistent Asthma severity: severe Dyspnea on exertion R06.09 Dyspnea type: dyspnea on exertion Time Spent (min) 16
== END 2024-09-29 10:38 | disposition home or self-care (01) ==
PROVIDERS: PCP Physician Assistant; Visit Provider Hospitalist
DX: J45.50 Severe persistent asthma, uncomplicated (principal); R06.09 Other forms of dyspnea
CPT/HCPCS: 99214

== ENCOUNTER → 2024-09-29 09:57 | Outpatient (BNVA) | payer OTHER, SELFPAY | PROVIDERS: PCP Physician Assistant; Visit Provider Hospitalist | DX: J45.50 Severe persistent asthma, uncomplicated (principal); R06.09 Other forms of dyspnea | CPT/HCPCS: 99212 ==